=== PATIENT | female | born 1995 ===

== ENCOUNTER 2021-02-10 11:21 | Emergency (ER) | payer SELFPAY ==
[2021-02-10 12:07] VITALS: BP 119/81
--- NOTE | 2021-02-10 13:03 | Emergency Department Report ---
<MOISE ROBINS - Last Filed: 02/10/21 18:21> ED Chest Pain HPI - General Chief Complaint: Upper Respiratory Infection Stated Complaint: BODYACHES Time Seen by Provider: 02/10/21 12:30 - Related Data Previous Rx's Medication Instructions Recorded Last Taken Type Benzonatate 200 mg PO TID PRN #20 capsule 02/10/21 Unknown Rx Loratadine 10 mg PO QDAY #10 tablet 02/10/21 Unknown Rx Ondansetron [Zofran Odt] 4 mg PO Q8HR PRN #10 tab.rapdis 02/10/21 Unknown Rx predniSONE [Deltasone] 20 mg PO BID 2 Days #4 tab 02/10/21 Unknown Rx Allergies Allergy/AdvReac Type Severity Reaction Status Date / Time No Known Allergies Allergy Unverified 02/10/21 12:04 ED Past Medical Hx - Medications Home Medications: Home Medications Medication Instructions Recorded Confirmed Last Taken Type Benzonatate 200 mg PO TID PRN #20 capsule 02/10/21 Unknown Rx Loratadine 10 mg PO QDAY #10 tablet 02/10/21 Unknown Rx Ondansetron [Zofran Odt] 4 mg PO Q8HR PRN #10 tab.rapdis 02/10/21 Unknown Rx predniSONE [Deltasone] 20 mg PO BID 2 Days #4 tab 02/10/21 Unknown Rx ED Medical Decision Making - Lab Data Result diagrams: 02/10/21 13:25 02/10/21 13:25 - Radiology Data [facility], [place] [address] [place] [address] Cat Scan Report Signed Patient: FREDDY SHAY MR#: [id number] : 1995 Acct:[id number] Age/Sex: 25 / F ADM Date: 02/10/21 Loc: ED Attending Dr: Ordering Physician: ILENE GOLDMAN Date of Service: 02/10/21 Procedure(s): CT angio chest Accession Number(s): [id number] cc: ILENE GOLDMAN CT angio chest INDICATION / CLINICAL INFORMATION: chest pain, +dimer. TECHNIQUE: Axial CT images were obtained through the chest after injection of 100 cc of Omnipaque 350 IV contrast. 3 plane MIP and/or 3D reconstructions were produced. All CT scans at this location are performed using CT dose reduction for ALARA by means of automated exposure control. COMPARISON: Chest radiograph from same day, 02/10/2021. FINDINGS: PULMONARY ARTERIES: No central or segmental pulmonary embolus. THORACIC AORTA: No significant abnormality. HEART: No significant abnormality. LYMPHADENOPATHY: No significant thoracic lymphadenopathy. LUNGS/PLEURA: No acute airspace disease. No pleural effusion or pneumothorax. OTHER FINDINGS: None. UPPER ABDOMEN: No acute findings. SKELETAL SYSTEM: No acute osseous findings. IMPRESSION: No acute findings in the chest. No evidence of pulmonary embolism. Signer Name: Erich Ashford MD Signed: 02/10/2021 6:07 PM Workstation Name: [id number] Transcribed By: JS Dictated By: ERICH ASHFORD MD Electronically Authenticated By: ERICH ASHFORD MD Signed Date/Time: 02/10/211806 DD/ 03 TD/TT: ED Disposition Clinical Impression: Viral syndrome, Person under investigation for COVID-19 Disposition: HOME / SELF CARE / HOMELESS Condition: Stable Instructions: Viral Respiratory Infection, Prevent the Spread of COVID-19 if You Are Sick - [facility] Prescriptions: Benzonatate 200 mg PO TID PRN #20 capsule PRN Reason: Cough predniSONE [Deltasone] 20 mg PO BID 2 Days #4 tab Loratadine 10 mg PO QDAY #10 tablet Ondansetron [Zofran Odt] 4 mg PO Q8HR PRN #10 tab.rapdis PRN Reason: Nausea Referrals: PRIMARY CAREMD [Primary Care Provider] - 3-5 Days Forms: Accompanied Note, Work/School Release Form(ED) <ILENE GOLDMAN - Last Filed: 02/11/21 11:09> ED Chest Pain HPI - General Source: patient Mode of arrival: Ambulatory Limitations: No Limitations - History of Present Illness Initial Comments: 25-year-old -[place] female patient presents with complaints of chest pain x2 days now with chills, body aches, nausea and vomiting, and shortness of breath and cough for 1 day. She denies being vaccinated for COVID-19 and also denies any loss of taste or smell or recent COVID-19 testing. No hemoptysis, hematemesis/coffee-ground emesis, melena/hematochezia, or abdominal pain per patient. She does report a recent long car ride to [place] around January 25. Past medical history includes syncopal episodes of unknown origin. Severity scale (0 -10): 6 Heart Score - HEART Score History: Slightly suspicious EKG: Normal Age: < 45 Risk factors: 1-2 risk factors Troponin: < normal limit HEART Score: 1 - EKG Read Time Time EKG Completed: 12:40 EKG Read Time: 12:45 - Critical Actions Critical Actions: 0-3 pts:0.9-1.7%risk of adverse cardiac event.Candidate for discharge ED Review of Systems ROS: Stated complaint: BODYACHES Other details as noted in HPI Constitutional: chills, malaise, weakness. denies: diaphoresis, fever ENT: denies: throat pain Respiratory: cough, SOB with exertion. denies: SOB at rest Cardiovascular: chest pain. denies: palpitations, edema, syncope Gastrointestinal: nausea, vomiting. denies: abdominal pain Genitourinary: denies: urgency, dysuria, frequency Skin: denies: rash, lesions, change in color Hematological/Lymphatic: denies: swollen glands ED Past Medical Hx - Past Medical History Additional medical history: HEART CONDTION - Surgical History Additional Surgical History: HYSTO/ C SECTION / DEVICE IN HEART ED Physical Exam - General Limitations: No Limitations General appearance: alert, in no apparent distress - Head Head exam: Present: atraumatic, normocephalic - Eye Eye exam: Absent: scleral icterus - Neck Neck exam: Present: normal inspection. Absent: lymphadenopathy - Respiratory Respiratory exam: Present: normal lung sounds bilaterally. Absent: respiratory distress - Cardiovascular Cardiovascular Exam: Present: regular rate, normal rhythm - GI/Abdominal GI/Abdominal exam: Present: soft, normal bowel sounds. Absent: distended, tenderness, guarding, rebound, rigid - Neurological Exam Neurological exam: Present: alert, oriented X3, normal gait - Psychiatric Psychiatric exam: Present: normal affect, normal mood - Skin Skin exam: Present: warm, dry, intact, normal color. Absent: rash ED Course Vital Signs 02/10/21 12:06 Temperature 98.3 F Pulse Rate 105 H Respiratory 16 Rate Blood Pressure 119/81 [Right] O2 Sat by Pulse 100 Oximetry ED Medical Decision Making - Lab Data Result diagrams: 02/10/21 13:25 02/10/21 13:25 Lab Results 02/10/21 02/10/21 02/10/21 Range/Units 13:25 13:25 13:25 WBC 3.8 L (4.5-11.0) K/mm3 RBC 5.02 (3.65-5.03) M/mm3 Hgb 12.7 (10.1-14.3) gm/dl Hct 40.2 (30.3-42.9) % MCV 80 (79-97) fl MCH 25 L (28-32) pg MCHC 32 (30-34) % RDW 15.2 (13.2-15.2) % Plt Count 247 (140-440) K/mm3 Lymph % (Auto) 16.6 (13.4-35.0) % [place] % (Auto) 13.7 H (0.0-7.3) % Eos % (Auto) 0.0 (0.0-4.3) % Baso % (Auto) 0.6 (0.0-1.8) % Lymph # (Auto) 0.6 L (1.2-5.4) K/mm3 [place] # (Auto) 0.5 (0.0-0.8) K/mm3 Eos # (Auto) 0.0 (0.0-0.4) K/mm3 Baso # (Auto) 0.0 (0.0-0.1) K/mm3 Seg Neutrophils % 69.1 (40.0-70.0) % Seg Neutrophils # 2.6 (1.8-7.7) K/mm3 D-Dimer 348.94 H (0-234) ng/mlDDU Sodium (137-145) mmol/L Potassium (3.6-5.0) mmol/L Chloride (98-107) mmol/L Carbon Dioxide (22-30) mmol/L Anion Gap mmol/L BUN (7-17) mg/dL Creatinine (0.6-1.2) mg/dL Estimated GFR ml/min BUN/Creatinine Ratio % Glucose (65-100) mg/dL Calcium (8.4-10.2) mg/dL HCG, Qual Negative (Negative) 02/10/21 Range/Units 13:25 WBC (4.5-11.0) K/mm3 RBC (3.65-5.03) M/mm3 Hgb (10.1-14.3) gm/dl Hct (30.3-42.9) % MCV (79-97) fl MCH (28-32) pg MCHC (30-34) % RDW (13.2-15.2) % Plt Count (140-440) K/mm3 Lymph % (Auto) (13.4-35.0) % [place] % (Auto) (0.0-7.3) % Eos % (Auto) (0.0-4.3) % Baso % (Auto) (0.0-1.8) % Lymph # (Auto) (1.2-5.4) K/mm3 [place] # (Auto) (0.0-0.8) K/mm3 Eos # (Auto) (0.0-0.4) K/mm3 Baso # (Auto) (0.0-0.1) K/mm3 Seg Neutrophils % (40.0-70.0) % Seg Neutrophils # (1.8-7.7) K/mm3 D-Dimer (0-234) ng/mlDDU Sodium 139 (137-145) mmol/L Potassium 3.4 L (3.6-5.0) mmol/L Chloride 104.6 (98-107) mmol/L Carbon Dioxide 20 L (22-30) mmol/L Anion Gap 18 mmol/L BUN 9 (7-17) mg/dL Creatinine 0.5 L (0.6-1.2) mg/dL Estimated GFR > 60 ml/min BUN/Creatinine Ratio 18 % Glucose 98 (65-100) mg/dL Calcium 8.7 (8.4-10.2) mg/dL HCG, Qual (Negative) - Radiology Data Radiology results: report reviewed XR chest routine 2V INDICATION / CLINICAL INFORMATION: cough. COMPARISON: None available. FINDINGS: SUPPORT DEVICES: None. HEART /PULMONARY VASCULATURE: No significant abnormality. LUNGS / PLEURA: No significant pulmonary or pleural abnormality. No pneumothorax. ADDITIONAL FINDINGS: No significant additional findings. IMPRESSION: 1. No acute findings. - Medical Decision Making 25-year-old -[place] female patient presents with complaints of chest pain x2 days now with chills, body aches, nausea and vomiting, and shortness of breath and cough for 1 day. She denies being vaccinated for COVID-19 and also denies any loss of taste or smell or recent COVID-19 testing. No hemoptysis, hematemesis/coffee-ground emesis, melena/hematochezia, or abdominal pain per patient. She does report a recent long car ride to [place] around January 25. Past medical history includes syncopal episodes of unknown origin. PERC score = 2. Dimer mildly positive at 348. Chest x-ray is normal. Heart rate rechecked by this provider and is now 91 beats per minute. CTA chest is normal. Will treat for viral URI. Recommend patient gets COVID-19 testing within the next 24 to 48 hours and self quarantine until her results are back. Discussed in detail signs and symptoms that should prompt immediate return to the ED with patient verbalized Critical care attestation.: If time is entered above; I have spent that time in minutes in the direct care of this critically ill patient, excluding procedure time. ED Disposition Is pt being admited?: No
--- NOTE | 2021-02-10 13:28 | XRay Report ---
XR chest routine 2V INDICATION / CLINICAL INFORMATION: cough. COMPARISON: None available. FINDINGS: SUPPORT DEVICES: None. HEART /PULMONARY VASCULATURE: No significant abnormality. LUNGS / PLEURA: No significant pulmonary or pleural abnormality. No pneumothorax. ADDITIONAL FINDINGS: No significant additional findings. IMPRESSION: 1. No acute findings. Signer Name: Rodríguez Ashford MD Signed: 02/10/2021 1:23 PM Workstation Name: [id number]
[2021-02-10 13:55] LABS: Basophils % (Auto) 0.6 % (0.0-1.8); Hematocrit 40.2 % (30.3-42.9); Hemoglobin 12.7 gm/dl (10.1-14.3); Lymphocytes # (Auto) 0.6 K/mm3 (1.2-5.4); Lymphocytes % (Auto) 16.6 % (13.4-35.0); Mean Corpuscular HGB Conc 32 % (30-34); Mean Corpuscular Volume 80 fl (79-97); Monocytes # (Auto) 0.5 K/mm3 (0.0-0.8); Monocytes % (Auto) 13.7 % (0.0-7.3); Platelet Count 247 K/mm3 (140-440); Red Blood Count 5.02 M/mm3 (3.65-5.03); Red Cell Distribution Width 15.2 % (13.2-15.2)
[2021-02-10 14:50] LABS: Blood Urea Nitrogen 9 mg/dL (7-17); Calcium 8.7 mg/dL (8.4-10.2); Hemolysis Index 4
[2021-02-10 14:51] LABS: BUN/Creatinine Ratio 18
[2021-02-10] MEDS ORDERED: POTASSIUM CHLORIDE ER 20 MEQ TAB PO ONE (15:18)
[2021-02-10] MEDS ORDERED: ONDANSETRON 4 MG ODT TAB PO ONE (16:07)
--- NOTE | 2021-02-10 18:11 | Cat Scan Report ---
CT angio chest INDICATION / CLINICAL INFORMATION: chest pain, +dimer. TECHNIQUE: Axial CT images were obtained through the chest after injection of 100 cc of Omnipaque 350 IV contrast. 3 plane MIP and/or 3D reconstructions were produced. All CT scans at this location are performed using CT dose reduction for ALARA by means of automated exposure control. COMPARISON: Chest radiograph from same day, 02/10/2021. FINDINGS: PULMONARY ARTERIES: No central or segmental pulmonary embolus. THORACIC AORTA: No significant abnormality. HEART: No significant abnormality. LYMPHADENOPATHY: No significant thoracic lymphadenopathy. LUNGS/PLEURA: No acute airspace disease. No pleural effusion or pneumothorax. OTHER FINDINGS: None. UPPER ABDOMEN: No acute findings. SKELETAL SYSTEM: No acute osseous findings. IMPRESSION: No acute findings in the chest. No evidence of pulmonary embolism. Signer Name: Rodríguez Ashford MD Signed: 02/10/2021 6:07 PM Workstation Name: [id number]
== END 2021-02-10 18:45 | disposition home or self-care (01) ==
LOC: ED 11:21
DX: B34.9 Viral infection, unspecified (principal); Z20.822 Contact with and (suspected) exposure to COVID-19; Z79.899 Other long term (current) drug therapy
CPT/HCPCS: 36415; 71046; 71275; 80048; 84703; 85025; 85379; 93005; 99284; Q9967; J3490; Q0162